=== PATIENT | male | born 1980 | race Caucasian/White ===

== ENCOUNTER 2019-03-29 00:59 | Emergency (ER) | payer SELFPAY ==
[2019-03-29] MEDS ORDERED: Ketorolac Tromethamine 30 MG/ML VIAL ONE (01:28)
--- NOTE | 2019-03-29 08:19 | RAD ---
EXAM: 4 views of the right knee HISTORY: Knee pain with possible patellar dislocation. History of hereditary osteochondromatosis COMPARISON: None FINDINGS: No knee effusion is seen. There is no evidence of acute fracture or dislocation. No signifi cant degenerative changes are seen. Multiple osteochondromas are seen extending off the distal femur and proximal tibia/fibula. No soft tissue swelling is present. IMPRESSION: No evidence of acute osseous abnormality.
== END 2019-03-29 02:15 | disposition home or self-care (01) ==
LOC: ERS 00:59
DX: M25.461 Effusion, right knee (principal); Z86.018 Personal history of other benign neoplasm
CPT/HCPCS: 96372; J1885

== ENCOUNTER 2020-10-18 15:55 | Emergency (ER) | payer SELFPAY ==
[2020-10-18] MEDS ORDERED: HYDROcodone/Acetaminophen 10/325 mg Tablet ONE (18:27)
[2020-10-18] MEDS ORDERED: Ondansetron ODT 4 MG TAB ONE (18:27)
== END 2020-10-18 18:31 | disposition home or self-care (01) ==
LOC: ERS 15:55
DX: M25.532 Pain in left wrist (principal)
CPT/HCPCS: Q0162

== ENCOUNTER 2023-08-31 10:04 | Inpatient (IN) | payer OTHER, SELFPAY ==
[2023-08-31] MEDS ORDERED: Iopamidol-370 76% 500 ML MDV (1 ML CHARGE) ONE (10:21)
[2023-08-31 11:44] LABS: #Monocytes 0.8 thou/uL (0.11-0.59); #Neutrophils 3.9 thou/uL (1.40-6.50); %Basophils 0.4 % (0.0-1.0); %Eosinophils 0.2 % (0.0-10.0); %Lymphocytes 10.5 % (21.0-51.0); %Neutrophils 73.5 % (42.0-75.0); Hemoglobin 18.9 g/dL (14.0-18.0); Mean Corpuscular HGB CONC 34.4 g/dL (32.0-36.0); Mean Corpuscular Hemoglobin 31.7 pg (27.0-31.0); Mean Corpuscular Volume 92.3 fl (78.0-98.0); Mean Platelet Volume 9.7 fL (7.4-10.4); Platelet Count 192 10x3/uL (130-400); RBC Distribution Width 12.3 % (11.5-14.5); Red Blood Cell (RBC) Count 5.96 mill/uL (4.70-6.10); White Blood Cell (WBC) Count 5.3 10x3/uL (4.8-10.8)
[2023-08-31] MEDS ORDERED: Ketorolac Tromethamine 30 MG (1 mL) VIAL ONE (11:52)
[2023-08-31] MEDS ORDERED: Morphine 4 MG/ML VIAL ONE (11:52)
[2023-08-31] MEDS ORDERED: Ondansetron PF 4 MG/2 ML Vial ONE (11:52)
[2023-08-31 12:12] LABS: ALT (SGPT) 31 U/L (8-55); AST (SGOT) 24 U/L (5-34); Albumin 4.2 g/dL (3.5-5.0); Alkaline Phosphatase 73 U/L (40-110); Anion Gap 15 mmol/L (10-20); BUN (Urea Nitrogen) 17 mg/dL (8.9-20.6); Bilirubin, Total 0.5 mg/dL (0.2-1.2); Calc. Creatinine Clearance 0 mL/min (70-130); Calcium 9.7 mg/dL (7.8-10.44); Carbon Dioxide 24 mmol/L (22-29); Chloride 96 mmol/L (98-107); Estimated GFR 98; Globulin 3.3 g/dL (2.4-3.5); Glucose 123 mg/dL (70-105); Lipase 16 U/L (8-78); Potassium 3.9 mmol/L (3.5-5.1); Protein, Total 7.5 g/dL (6.0-8.3); Sodium 131 mmol/L (136-145)
[2023-08-31 13:25] LABS: Troponin I Less than 0.010 ng/mL (< 0.028)
[2023-08-31] MEDS ORDERED: Lorazepam 1 MG TAB PO PRN (15:53)
[2023-08-31] MEDS ORDERED: Ondansetron ODT 4 MG TAB PO PRN (15:53)
[2023-08-31] MEDS ORDERED: Lorazepam 2 MG/ML VIAL IM PRN (15:53)
[2023-08-31] MEDS ORDERED: Electrolyte Replacement Protocol 1 EACH FS SCH (16:00)
[2023-08-31 16:40] LABS: Amphetamine Not Detected (NotDetected); Barbiturates Screen Not Detected (NotDetected); Benzodiazepine Screen Not Detected (NotDetected); Cocaine Metabolite Screen Not Detected (NotDetected); Methadone Not Detected (NotDetected); Methamphetamine Detected (NotDetected); Opiate Screen Detected (NotDetected); Oxycodone Screen Not Detected (NotDetected); Phencyclidine (PCP) Not Detected (NotDetected); THC/Cannabinoid Screen Not Detected (NotDetected); Tricyclic Screen Not Detected (NotDetected)
[2023-08-31] MEDS: Multivit, Therapeutic 1 TAB PO SCH (18:09)
[2023-08-31] MEDS: Folic Acid 1 MG TAB PO SCH (18:09)
[2023-08-31 18:23] VITALS: BMI 27.4
[2023-08-31] MEDS: Thiamine HCl 200 MG/2 ML VIAL SLOW IVP SCH (18:32)
[2023-08-31] MEDS: Ketorolac Tromethamine 30 MG (1 mL) VIAL IVP SCH (23:46)
[2023-08-31] MEDS: Ondansetron PF 4 MG/2 ML Vial IVP PRN (23:47)
[2023-09-01] MEDS: Ketorolac Tromethamine 30 MG (1 mL) VIAL IVP PRN (05:44)
[2023-09-01 06:25] LABS: Hematocrit 49.1 % (42.0-52.0); Hemoglobin 17.1 g/dL (14.0-18.0); Manual Diff?? YES; Mean Corpuscular HGB CONC 34.8 g/dL (32.0-36.0); Mean Corpuscular Hemoglobin 31.8 pg (27.0-31.0); Mean Corpuscular Volume 91.3 fl (78.0-98.0); Mean Platelet Volume 10.2 fL (7.4-10.4); Platelet Count 185 10x3/uL (130-400); RBC Distribution Width 12.4 % (11.5-14.5); Red Blood Cell (RBC) Count 5.38 mill/uL (4.70-6.10); White Blood Cell (WBC) Count 3.1 10x3/uL (4.8-10.8)
[2023-09-01 06:27] LABS: Delete Auto Diff?? YES
[2023-09-01 06:45] LABS: Anion Gap 13 mmol/L (10-20); BUN (Urea Nitrogen) 28 mg/dL (8.9-20.6); Calc. Creatinine Clearance 106 mL/min (70-130); Carbon Dioxide 26 mmol/L (22-29); Chloride 97 mmol/L (98-107); Estimated GFR 84; Glucose 103 mg/dL (70-105); Sodium 132 mmol/L (136-145)
[2023-09-01 06:56] LABS: Band 44 % (5-11); CellaVision Operator ID LAB.CLH1; Hypochromia SLIGHT = 6-15 cells HPF (0-5); Large Platelets 10.4 % (0-5); Lymphocytes 12 % (21-51); Monocytes 24 % (0-10); Neutrophil 15 % (42-75); Platelet Adequacy Comment Platelets Normal; Polychromasia SLIGHT = 2-3 cells HPF (0-2); Reactive Lymphocytes 5 % (0-10); Total Cell Count 115
[2023-09-01 07:43] LABS: Phosphorus 3.8 mg/dL (2.3-4.7)
[2023-09-01 07:45] LABS: Magnesium 1.7 mg/dL (1.6-2.6)
[2023-09-01] MEDS: Multivit, Therapeutic 1 TAB PO SCH (09:50)
[2023-09-01] MEDS: Folic Acid 1 MG TAB PO SCH (09:50)
[2023-09-01] MEDS: Magnesium 2 GM/50 ML(in water) 2 GM in Premix 1 BAG IVPB SCH (09:50)
[2023-09-01] MEDS: Morphine 4 MG/ML VIAL SLOW IVP PRN (15:10)
[2023-09-01] MEDS ORDERED: Lorazepam 1 MG TAB PO PRN (15:53)
[2023-09-02 07:59] LABS: Anion Gap 15 mmol/L (10-20); BUN (Urea Nitrogen) 28 mg/dL (8.9-20.6); Calc. Creatinine Clearance 112 mL/min (70-130); Calcium 8.5 mg/dL (7.8-10.44); Carbon Dioxide 24 mmol/L (22-29); Chloride 96 mmol/L (98-107); Estimated GFR 89; Glucose 97 mg/dL (70-105); Potassium 4.1 mmol/L (3.5-5.1); Sodium 131 mmol/L (136-145)
[2023-09-02] MEDS ORDERED: Mineral Oil ENEMA PR SCH (08:00)
[2023-09-02] MEDS: Fleet Saline Enema 133 ML BOT PR SCH (08:12)
[2023-09-02] MEDS: Sodium Chloride 0.9% 1,000 ML IV SCH (08:12)
[2023-09-02 08:35] VITALS: BP 130/87; TEMP 98.2
[2023-09-02] MEDS ORDERED: Lidocaine 2% PF 5 ML VIAL ONE (10:09)
[2023-09-02] MEDS ORDERED: Rocuronium Bromide 10 MG/ML (10ML VIAL) ONE (10:09)
[2023-09-02] MEDS ORDERED: SUCCINYLCHOLINE/SOD CL,ISO/PF 200 MG/10 ML SYRINGE FS ONE (10:09)
[2023-09-02] MEDS ORDERED: PROPOFOL 20 ML ONE (10:09)
[2023-09-02] MEDS ORDERED: SUGAMMADEX SODIUM 200 MG/2 ML VIAL ONE (10:11)
[2023-09-02] MEDS ORDERED: Lorazepam 1 MG TAB PO PRN (15:53)
[2023-09-03] MEDS ORDERED: Lorazepam 0.5 MG TAB PO PRN (15:53)
[2023-09-03] MEDS ORDERED: Thiamine 100 MG TAB PO SCH (17:00)
== END 2023-09-02 11:40 | disposition left against medical advice (07) | DRG 389 ==
LOC: ERS 10:04 → ERHOLD 15:51 → MSONC 17:51
PROVIDERS: ADMIT Internal Medicine; ATTEND Family Medicine
PROC: 0D9670Z Drainage of Stomach with Drainage Device, Via Natural or Artificial Opening (ICD-10-PCS; principal; 2023-08-31)
PROC: 0DBN8ZX Excision of Sigmoid Colon, Via Natural or Artificial Opening Endoscopic, Diagnostic (ICD-10-PCS; 2023-09-02)
DX: K56.609 Unspecified intestinal obstruction, unspecified as to partial versus complete obstruction (principal); E87.1 Hypo-osmolality and hyponatremia; F17.210 Nicotine dependence, cigarettes, uncomplicated; D72.819 Decreased white blood cell count, unspecified; Z79.899 Other long term (current) drug therapy; Z71.6 Tobacco abuse counseling
CPT/HCPCS: 36415; 71045; 74177; 80048; 80053; 80306; 83690; 83735; 84100; 84484; 85025; 88305; 93005; 96361; 96374; 96375; J1885; J2001; J2270; J2405; J2704; J3411; J3475; J7050; Q9967